=== PATIENT | male | born 1955 | race Caucasian/White ===

== ENCOUNTER 2017-12-22 08:40 | Inpatient (IN) | payer BC ==
[2017-12-22] MEDS ORDERED: ACETAMINOPHEN 325 MG TAB PO (10:30)
[2017-12-22] MEDS ORDERED: DEXTROSE 50% 50 ML SYRINGE IV ×2 (11:00)
[2017-12-22] MEDS ORDERED: GLUCOSE GEL 15 GRAM TUBE PO ×2 (11:00)
[2017-12-22] MEDS ORDERED: GLUCOSE GEL 15 GRAM TUBE BUCCAL (11:00)
[2017-12-22] MEDS: DEXTROSE 5%-0.45% NACL 1,000 ML IV (11:00)
[2017-12-22] MEDS ORDERED: GLUCAGON 1 MG INJ IM (11:00)
[2017-12-22 11:42] LABS: ADD MAN DIFF? NO
[2017-12-22 11:47] LABS: BASOPHILS % 0.3 % (0.0-2.0); EOSINOPHILS # 0.2 10^3/ul (0.0-0.5); EOSINOPHILS % 1.3 % (0.0-7.0); HEMATOCRIT 27.2 % (42.0-52.0); HEMOGLOBIN 8.1 g/dl (14.0-18.0); LYMPHOCYTES # 1.2 10^3/ul (0.8-2.9); MEAN CORPUSCULAR HEMOGLOBIN 23.3 pg (29.0-33.0); MEAN CORPUSCULAR HGB CONC 29.8 g/dl (32.0-37.0); MEAN CORPUSCULAR VOLUME 78.4 fl (82.0-101.0); MEAN PLATELET VOLUME 10.1 fl (7.4-10.4); MONOCYTE # 0.4 10^3/ul (0.3-0.9); MONOCYTES % 3.4 % (0.0-11.0); NEUTROPHIL # 9.8 10^3/ul (1.6-7.5); NEUTROPHILS % 84.5 % (39.0-77.0); PLATELET COUNT 284 10^3/UL (140-415); RED BLOOD COUNT 3.47 10^6/ul (4.70-6.10); RED CELL DISTRIBUTION WIDTH 17.2 % (11.5-14.5)
[2017-12-22 11:47] LABS: WHITE BLOOD COUNT 11.6 10^3/ul (4.8-10.8)
[2017-12-22 12:10] LABS: ANION GAP 14 (8-16); BLOOD UREA NITROGEN 13 mg/dl (7-20); CALCIUM 8.3 mg/dl (8.4-10.2); CARBON DIOXIDE 24 mmol/L (21-31); CHLORIDE 106 mmol/L (97-110); CREATININE 0.62 mg/dl (0.61-1.24); GLUCOSE 111 mg/dl (70-220); POTASSIUM 4.3 mmol/L (3.5-5.1); SODIUM 140 mmol/L (135-144)
[2017-12-22] MEDS: INSULIN ASPART [NOVOLOG] 3 ML PEN SC ×3 (12:35→20:15)
[2017-12-22] MEDS: CLINDAMYCIN 900 MG/D5W (PMX) 50 ML IVPB ×2 (14:31→22:31)
[2017-12-22] MEDS: SOD CHLORIDE 0.9% 1,000 ML IV (15:57)
[2017-12-22] MEDS ORDERED: HYDROCODONE/APAP (5/325) TAB PO (16:00)
[2017-12-22] MEDS: morphine 2 MG INJ IV (20:08)
[2017-12-22] MEDS: FERROUS SULFATE (EC) 325 MG TAB PO (20:14)
[2017-12-22] MEDS: GABAPENTIN 300 MG CAP PO (20:14)
[2017-12-23] MEDS: ACCU-CHEK XX (02:00)
[2017-12-23 05:49] LABS: ADD MAN DIFF? NO
[2017-12-23 05:50] LABS: WHITE BLOOD COUNT 12.1 10^3/ul (4.8-10.8)
[2017-12-23 05:50] LABS: BASOPHILS % 0.2 % (0.0-2.0); EOSINOPHILS # 0.2 10^3/ul (0.0-0.5); EOSINOPHILS % 1.4 % (0.0-7.0); HEMATOCRIT 27.2 % (42.0-52.0); LYMPHOCYTES # 1.7 10^3/ul (0.8-2.9); LYMPHOCYTES % 13.7 % (15.0-51.0); MEAN CORPUSCULAR HEMOGLOBIN 23.1 pg (29.0-33.0); MEAN CORPUSCULAR HGB CONC 29.4 g/dl (32.0-37.0); MEAN CORPUSCULAR VOLUME 78.6 fl (82.0-101.0); MEAN PLATELET VOLUME 10.2 fl (7.4-10.4); MONOCYTE # 0.5 10^3/ul (0.3-0.9); MONOCYTES % 3.9 % (0.0-11.0); NEUTROPHIL # 9.7 10^3/ul (1.6-7.5); NEUTROPHILS % 80.4 % (39.0-77.0); PLATELET COUNT 264 10^3/UL (140-415); RED BLOOD COUNT 3.46 10^6/ul (4.70-6.10); RED CELL DISTRIBUTION WIDTH 17.5 % (11.5-14.5)
[2017-12-23] MEDS: PANTOPRAZOLE (EC) 40 MG TAB PO (06:00)
[2017-12-23] MEDS: CLINDAMYCIN 900 MG/D5W (PMX) 50 ML IVPB ×2 (06:07→13:51)
[2017-12-23 06:10] LABS: ALANINE AMINOTRANSFERASE 16 IU/L (13-69); ALBUMIN 2.9 g/dl (3.3-4.9); ALBUMIN/GLOBULIN RATIO 0.64; ALKALINE PHOSPHATASE 72 IU/L (42-121); ANION GAP 8 (8-16); ASPARTATE AMINO TRANSFERASE 11 IU/L (15-46); BILIRUBIN,INDIRECT 0.1 mg/dl (0-1.1); BILIRUBIN,TOTAL 0.1 mg/dl (0.2-1.3); BLOOD UREA NITROGEN 13 mg/dl (7-20); CARBON DIOXIDE 26 mmol/L (21-31); CHLORIDE 108 mmol/L (97-110); CREATININE 0.69 mg/dl (0.61-1.24); GLUCOSE 120 mg/dl (70-220); POTASSIUM 4.7 mmol/L (3.5-5.1); SODIUM 137 mmol/L (135-144); TOTAL PROTEIN 7.4 g/dl (6.1-8.1)
[2017-12-23] MEDS: INSULIN ASPART [NOVOLOG] 3 ML PEN SC ×4 (07:30→20:40)
[2017-12-23] MEDS: FERROUS SULFATE (EC) 325 MG TAB PO ×2 (09:00→20:39)
[2017-12-23] MEDS: LISINOPRIL 5 MG TAB PO (09:00)
[2017-12-23] MEDS: GABAPENTIN 300 MG CAP PO ×2 (09:00→20:39)
[2017-12-23] MEDS: ASPIRIN (EC) 81 MG TAB PO (09:00)
[2017-12-23] MEDS: LINAGLIPTIN 5 MG TABLET PO (11:50)
[2017-12-23] MEDS: SOD CHLORIDE 0.9% 1,000 ML IV (12:11)
[2017-12-23] MEDS: LEVOFLOXACIN 500MG/D5W (PMX) 100 ML IVPB (14:31)
[2017-12-23] MEDS: DEXTROSE 5%-0.45% NACL 1,000 ML IV (14:31)
[2017-12-23 15:26] LABS: PROTIME 15.4 Sec (11.9-14.9); PT RATIO 1.2
[2017-12-23] MEDS: ZYVOX 600 MG TAB PO ×2 (16:00→22:39)
[2017-12-23] MEDS: ERTAPENEM SODIUM 1 GM in SOD CHLORIDE 0.9% 100 ML IVPB ×2 (16:00→20:56)
[2017-12-23] MEDS ORDERED: LIDOCAINE 2% (SDV) 5 ML INJ (17:23)
[2017-12-23] MEDS ORDERED: GLYCOPYRROLATE 0.4 MG INJ (17:23)
[2017-12-23] MEDS ORDERED: SUCCINYLCHOLINE CHLORIDE 100 MG/5 ML SYG IV (17:23)
[2017-12-23] MEDS ORDERED: PROPOFOL 20 ML (17:23)
[2017-12-23] MEDS ORDERED: MEPERIDINE 100 MG INJ (17:23)
[2017-12-23] MEDS ORDERED: ROCURONIUM 50 MG INJ (17:23)
[2017-12-23] MEDS ORDERED: NEOSTIGMINE 3 MG/3 ML SYRINGE (17:23)
[2017-12-23] MEDS ORDERED: OXYCODONE/ACETAMINOPHEN (5/325) TAB PO ×2 (17:30)
[2017-12-23] MEDS ORDERED: MEPERIDINE 25 MG INJ IV (17:30)
[2017-12-23] MEDS ORDERED: EPHEDrine SULFATE 50 MG/5 ML SYG IV (17:30)
[2017-12-23] MEDS ORDERED: ONDANSETRON 4 MG INJ IV (17:30)
[2017-12-23] MEDS ORDERED: LABETALOL HCL 20MG INJ IV (17:30)
[2017-12-23] MEDS ORDERED: METOCLOPRAMIDE 10 MG INJ IV (17:30)
[2017-12-23] MEDS ORDERED: FENTAnyl 50 MCG/ML VIAL IV ×3 (17:30)
[2017-12-23] MEDS ORDERED: DIPHENHYDRAMINE 50 MG INJ IV (17:30)
[2017-12-23] MEDS ORDERED: hydrALAzine 20 MG INJ IV (17:30)
[2017-12-23] MEDS ORDERED: MIDAZOLAM 1 MG/ML 2 ML INJ IV (17:30)
[2017-12-23] MEDS ORDERED: HYDROmorphONE (0.2 MG/ML) 10ML SYG IV ×3 (17:30)
[2017-12-23] MEDS ORDERED: morphine LIQ (10 MG/5 ML) CUP PO (19:30)
[2017-12-23] MEDS: ONDANSETRON 4 MG INJ IV (20:38)
[2017-12-24] MEDS: ACCU-CHEK XX (02:06)
[2017-12-24 06:04] LABS: ADD MAN DIFF? NO
[2017-12-24 06:15] LABS: WHITE BLOOD COUNT 14.6 10^3/ul (4.8-10.8)
[2017-12-24 06:15] LABS: ABNORMAL IP MESSAGE 1; BASOPHILS % 0.1 % (0.0-2.0); EOSINOPHILS % 0.1 % (0.0-7.0); HEMATOCRIT 23.7 % (42.0-52.0); LYMPHOCYTES # 0.4 10^3/ul (0.8-2.9); LYMPHOCYTES % 2.5 % (15.0-51.0); MEAN CORPUSCULAR HGB CONC 29.5 g/dl (32.0-37.0); MEAN PLATELET VOLUME 10.3 fl (7.4-10.4); MONOCYTE # 0.4 10^3/ul (0.3-0.9); MONOCYTES % 2.5 % (0.0-11.0); NEUTROPHIL # 13.8 10^3/ul (1.6-7.5); NEUTROPHILS % 94.5 % (39.0-77.0); PLATELET COUNT 230 10^3/UL (140-415); POSITIVE DIFF @See below; RED BLOOD COUNT 3.04 10^6/ul (4.70-6.10); RED CELL DISTRIBUTION WIDTH 17.2 % (11.5-14.5)
[2017-12-24] MEDS: PANTOPRAZOLE (EC) 40 MG TAB PO (06:20)
[2017-12-24 06:29] LABS: HEMOGLOBIN A1C 6.4 % (0-5.9)
[2017-12-24 07:05] LABS: ANION GAP 14 (8-16); BLOOD UREA NITROGEN 12 mg/dl (7-20); CALCIUM 7.6 mg/dl (8.4-10.2); CARBON DIOXIDE 25 mmol/L (21-31); CHLORIDE 106 mmol/L (97-110); CREATININE 0.72 mg/dl (0.61-1.24); GLUCOSE 179 mg/dl (70-220); POTASSIUM 4.5 mmol/L (3.5-5.1); SODIUM 140 mmol/L (135-144)
[2017-12-24] MEDS: GABAPENTIN 300 MG CAP PO ×2 (08:30→20:21)
[2017-12-24] MEDS: ASPIRIN (EC) 81 MG TAB PO (08:30)
[2017-12-24] MEDS: LINAGLIPTIN 5 MG TABLET PO (08:30)
[2017-12-24] MEDS: ZYVOX 600 MG TAB PO ×2 (08:30→20:21)
[2017-12-24] MEDS: FERROUS SULFATE (EC) 325 MG TAB PO ×2 (08:30→20:21)
[2017-12-24] MEDS: INSULIN ASPART [NOVOLOG] 3 ML PEN SC ×4 (08:32→20:22)
[2017-12-24] MEDS: LISINOPRIL 5 MG TAB PO (09:00)
[2017-12-24] MEDS: FOLIC ACID 1 MG TAB PO (12:07)
[2017-12-24] MEDS: LIDOCAINE 1% (MPF) 5 ML VIAL SC (16:00)
[2017-12-24] MEDS ORDERED: LIDOCAINE 1% (MPF) 5 ML VIAL SC (16:30)
[2017-12-24] MEDS: SOD FERRIC GLUC COMPLX 125 MG in SOD CHLORIDE 0.9% 100 ML IVPB (17:37)
[2017-12-24] MEDS: ERTAPENEM SODIUM 1 GM in SOD CHLORIDE 0.9% 100 ML IVPB (17:37)
[2017-12-24] MEDS: DIPHENHYDRAMINE 25 MG CAP PO (22:27)
[2017-12-24] MEDS: ACETAMINOPHEN 325 MG TAB PO (22:27)
[2017-12-25] MEDS: ACCU-CHEK XX (02:05)
[2017-12-25 06:18] LABS: ADD MAN DIFF? NO
[2017-12-25 06:23] LABS: WHITE BLOOD COUNT 7.2 10^3/ul (4.8-10.8)
[2017-12-25 06:23] LABS: ABNORMAL IP MESSAGE 1; BASOPHILS % 0.3 % (0.0-2.0); EOSINOPHILS # 0.1 10^3/ul (0.0-0.5); EOSINOPHILS % 1.1 % (0.0-7.0); HEMATOCRIT 20.6 % (42.0-52.0); LYMPHOCYTES # 0.7 10^3/ul (0.8-2.9); LYMPHOCYTES % 9.6 % (15.0-51.0); MEAN CORPUSCULAR HGB CONC 30.6 g/dl (32.0-37.0); MEAN CORPUSCULAR VOLUME 78.3 fl (82.0-101.0); MEAN PLATELET VOLUME 10.5 fl (7.4-10.4); MONOCYTE # 0.3 10^3/ul (0.3-0.9); MONOCYTES % 4.7 % (0.0-11.0); NEUTROPHILS % 83.9 % (39.0-77.0); PLATELET COUNT 220 10^3/UL (140-415); POSITIVE DIFF @See below; RED BLOOD COUNT 2.63 10^6/ul (4.70-6.10); RED CELL DISTRIBUTION WIDTH 17.2 % (11.5-14.5)
[2017-12-25] MEDS: PANTOPRAZOLE (EC) 40 MG TAB PO (06:31)
[2017-12-25 06:51] LABS: HEMOGLOBIN 6.3 g/dl (14.0-18.0)
[2017-12-25 07:27] LABS: ANION GAP 10 (8-16); BLOOD UREA NITROGEN 12 mg/dl (7-20); CALCIUM 7.7 mg/dl (8.4-10.2); CARBON DIOXIDE 26 mmol/L (21-31); CHLORIDE 106 mmol/L (97-110); CREATININE 0.77 mg/dl (0.61-1.24); GLUCOSE 121 mg/dl (70-220); POTASSIUM 3.8 mmol/L (3.5-5.1); SODIUM 138 mmol/L (135-144)
[2017-12-25] MEDS: INSULIN ASPART [NOVOLOG] 3 ML PEN SC ×4 (07:30→21:00)
[2017-12-25] MEDS: FERROUS SULFATE (EC) 325 MG TAB PO ×2 (08:32→21:00)
[2017-12-25] MEDS: FOLIC ACID 1 MG TAB PO (08:32)
[2017-12-25] MEDS: ASPIRIN (EC) 81 MG TAB PO (08:32)
[2017-12-25] MEDS: GABAPENTIN 300 MG CAP PO ×2 (08:32→21:00)
[2017-12-25] MEDS: ZYVOX 600 MG TAB PO ×2 (08:32→21:00)
[2017-12-25] MEDS: LISINOPRIL 5 MG TAB PO (08:33)
[2017-12-25] MEDS: LINAGLIPTIN 5 MG TABLET PO (08:33)
[2017-12-25 09:34] LABS: IMMEDIATE SPIN CROSSMATCH 1 4
[2017-12-25] MEDS: morphine 2 MG INJ IV (15:32)
[2017-12-25] MEDS: ERTAPENEM SODIUM 1 GM in SOD CHLORIDE 0.9% 100 ML IVPB (16:17)
[2017-12-25] MEDS: SOD FERRIC GLUC COMPLX 125 MG in SOD CHLORIDE 0.9% 100 ML IVPB (17:11)
[2017-12-25] MEDS ORDERED: morphine LIQ (10 MG/5 ML) CUP PO ×2 (18:30)
[2017-12-26] MEDS: ACCU-CHEK XX (02:00)
[2017-12-26] MEDS: PANTOPRAZOLE (EC) 40 MG TAB PO (05:28)
[2017-12-26] MEDS: BISACODYL (EC) 5 MG TAB PO (05:28)
[2017-12-26 06:20] LABS: ADD MAN DIFF? NO
[2017-12-26 06:29] LABS: WHITE BLOOD COUNT 9.5 10^3/ul (4.8-10.8)
[2017-12-26 06:29] LABS: BASOPHILS % 0.2 % (0.0-2.0); EOSINOPHILS # 0.2 10^3/ul (0.0-0.5); EOSINOPHILS % 1.8 % (0.0-7.0); HEMATOCRIT 22.4 % (42.0-52.0); LYMPHOCYTES # 0.8 10^3/ul (0.8-2.9); LYMPHOCYTES % 8.7 % (15.0-51.0); MEAN CORPUSCULAR HGB CONC 31.3 g/dl (32.0-37.0); MEAN PLATELET VOLUME 10.8 fl (7.4-10.4); MONOCYTE # 0.4 10^3/ul (0.3-0.9); MONOCYTES % 4.4 % (0.0-11.0); NEUTROPHILS % 84.4 % (39.0-77.0); PLATELET COUNT 217 10^3/UL (140-415)
[2017-12-26] MEDS: INSULIN ASPART [NOVOLOG] 3 ML PEN SC ×4 (08:04→20:40)
[2017-12-26] MEDS: FERROUS SULFATE (EC) 325 MG TAB PO ×2 (08:28→20:40)
[2017-12-26] MEDS: LINAGLIPTIN 5 MG TABLET PO (08:28)
[2017-12-26] MEDS: ZYVOX 600 MG TAB PO ×2 (08:28→20:40)
[2017-12-26] MEDS: ASPIRIN (EC) 81 MG TAB PO (08:28)
[2017-12-26] MEDS: GABAPENTIN 300 MG CAP PO ×2 (08:28→20:40)
[2017-12-26] MEDS: FOLIC ACID 1 MG TAB PO (08:28)
[2017-12-26] MEDS: LISINOPRIL 5 MG TAB PO (08:59)
[2017-12-26] MEDS: ERTAPENEM SODIUM 1 GM in SOD CHLORIDE 0.9% 100 ML IVPB (17:50)
[2017-12-26] MEDS: SOD FERRIC GLUC COMPLX 125 MG in SOD CHLORIDE 0.9% 100 ML IVPB (18:30)
[2017-12-26] MEDS: morphine 2 MG INJ IV (22:21)
[2017-12-27] MEDS: ACCU-CHEK XX (02:00)
[2017-12-27 05:19] LABS: ADD MAN DIFF? NO
[2017-12-27 05:21] LABS: WHITE BLOOD COUNT 7.5 10^3/ul (4.8-10.8)
[2017-12-27 05:21] LABS: BASOPHILS % 0.3 % (0.0-2.0); EOSINOPHILS # 0.1 10^3/ul (0.0-0.5); EOSINOPHILS % 1.7 % (0.0-7.0); HEMATOCRIT 27.1 % (42.0-52.0); HEMOGLOBIN 8.4 g/dl (14.0-18.0); LYMPHOCYTES # 0.8 10^3/ul (0.8-2.9); LYMPHOCYTES % 10.7 % (15.0-51.0); MEAN CORPUSCULAR HEMOGLOBIN 25.2 pg (29.0-33.0); MEAN CORPUSCULAR VOLUME 81.4 fl (82.0-101.0); MEAN PLATELET VOLUME 9.8 fl (7.4-10.4); MONOCYTE # 0.3 10^3/ul (0.3-0.9); MONOCYTES % 4.6 % (0.0-11.0); NEUTROPHIL # 6.2 10^3/ul (1.6-7.5); NEUTROPHILS % 82.4 % (39.0-77.0); PLATELET COUNT 212 10^3/UL (140-415); RED BLOOD COUNT 3.33 10^6/ul (4.70-6.10); RED CELL DISTRIBUTION WIDTH 17.1 % (11.5-14.5)
[2017-12-27] MEDS: PANTOPRAZOLE (EC) 40 MG TAB PO (05:41)
[2017-12-27] MEDS: INSULIN ASPART [NOVOLOG] 3 ML PEN SC ×4 (07:30→21:00)
[2017-12-27] MEDS: ZYVOX 600 MG TAB PO ×2 (09:04→21:17)
[2017-12-27] MEDS: GABAPENTIN 300 MG CAP PO ×2 (09:04→21:17)
[2017-12-27] MEDS: FERROUS SULFATE (EC) 325 MG TAB PO ×2 (09:04→21:17)
[2017-12-27] MEDS: ASPIRIN (EC) 81 MG TAB PO (09:05)
[2017-12-27] MEDS: LINAGLIPTIN 5 MG TABLET PO (09:05)
[2017-12-27] MEDS: FOLIC ACID 1 MG TAB PO (09:05)
[2017-12-27] MEDS: LISINOPRIL 5 MG TAB PO (09:05)
[2017-12-27] MEDS: ERTAPENEM SODIUM 1 GM in SOD CHLORIDE 0.9% 100 ML IVPB (16:04)
[2017-12-28] MEDS: ACCU-CHEK XX (02:00)
[2017-12-28] MEDS: PANTOPRAZOLE (EC) 40 MG TAB PO (05:25)
[2017-12-28 05:38] LABS: ADD MAN DIFF? NO
[2017-12-28 05:41] LABS: BASOPHILS % 0.2 % (0.0-2.0); EOSINOPHILS # 0.2 10^3/ul (0.0-0.5); EOSINOPHILS % 2.6 % (0.0-7.0); HEMATOCRIT 27.4 % (42.0-52.0); HEMOGLOBIN 8.5 g/dl (14.0-18.0); LYMPHOCYTES % 14.9 % (15.0-51.0); MEAN CORPUSCULAR HEMOGLOBIN 25.2 pg (29.0-33.0); MEAN CORPUSCULAR VOLUME 81.3 fl (82.0-101.0); MEAN PLATELET VOLUME 9.4 fl (7.4-10.4); MONOCYTE # 0.3 10^3/ul (0.3-0.9); MONOCYTES % 4.1 % (0.0-11.0); NEUTROPHIL # 5.1 10^3/ul (1.6-7.5); NEUTROPHILS % 77.9 % (39.0-77.0); PLATELET COUNT 218 10^3/UL (140-415); RED BLOOD COUNT 3.37 10^6/ul (4.70-6.10); RED CELL DISTRIBUTION WIDTH 17.7 % (11.5-14.5)
[2017-12-28 05:41] LABS: WHITE BLOOD COUNT 6.6 10^3/ul (4.8-10.8)
[2017-12-28 06:06] LABS: CARBON DIOXIDE 26 mmol/L (21-31); CHLORIDE 107 mmol/L (97-110); POTASSIUM 4.2 mmol/L (3.5-5.1); SODIUM 141 mmol/L (135-144)
[2017-12-28 06:07] LABS: ANION GAP 12 (8-16); BLOOD UREA NITROGEN 10 mg/dl (7-20); CALCIUM 7.8 mg/dl (8.4-10.2); CREATININE 0.66 mg/dl (0.61-1.24); GLUCOSE 109 mg/dl (70-220)
[2017-12-28 06:13] LABS: PHOSPHORUS 4.2 mg/dl (2.5-4.9)
[2017-12-28] MEDS: INSULIN ASPART [NOVOLOG] 3 ML PEN SC ×4 (07:52→20:33)
[2017-12-28] MEDS: ZYVOX 600 MG TAB PO (08:47)
[2017-12-28] MEDS: LISINOPRIL 5 MG TAB PO (08:47)
[2017-12-28] MEDS: FERROUS SULFATE (EC) 325 MG TAB PO ×2 (08:47→20:31)
[2017-12-28] MEDS: LINAGLIPTIN 5 MG TABLET PO (08:47)
[2017-12-28] MEDS: GABAPENTIN 300 MG CAP PO ×2 (08:47→20:33)
[2017-12-28] MEDS: ASPIRIN (EC) 81 MG TAB PO (08:47)
[2017-12-28] MEDS: FOLIC ACID 1 MG TAB PO (08:47)
[2017-12-28] MEDS ORDERED: morphine LIQ (10 MG/5 ML) CUP PO (15:30)
[2017-12-28] MEDS: ERTAPENEM SODIUM 1 GM in SOD CHLORIDE 0.9% 100 ML IVPB (15:40)
[2017-12-28] MEDS: DAPTOMYCIN IVPB (16:28)
[2017-12-28] MEDS: SOD CHLORIDE 0.9% IVPB (16:28)
[2017-12-28] MEDS: morphine 2 MG INJ IV (23:24)
[2017-12-29] MEDS: ACCU-CHEK XX (01:18)
[2017-12-29 06:46] LABS: CREATINE KINASE < 20 IU/L (23-200)
[2017-12-29] MEDS: PANTOPRAZOLE (EC) 40 MG TAB PO (06:49)
[2017-12-29] MEDS: INSULIN ASPART [NOVOLOG] 3 ML PEN SC ×2 (07:30→11:30)
[2017-12-29] MEDS: ASPIRIN (EC) 81 MG TAB PO (09:28)
[2017-12-29] MEDS: FOLIC ACID 1 MG TAB PO (09:28)
[2017-12-29] MEDS: FERROUS SULFATE (EC) 325 MG TAB PO (09:28)
[2017-12-29] MEDS: LINAGLIPTIN 5 MG TABLET PO (09:29)
[2017-12-29] MEDS: GABAPENTIN 300 MG CAP PO (09:29)
[2017-12-29] MEDS: LISINOPRIL 5 MG TAB PO (09:29)
[2017-12-29] MEDS: ERTAPENEM SODIUM 1 GM in SOD CHLORIDE 0.9% 100 ML IVPB (15:56)
[2017-12-29] MEDS: SOD CHLORIDE 0.9% IVPB (15:57)
[2017-12-29] MEDS: DAPTOMYCIN IVPB (15:57)
== END 2017-12-29 17:23 | disposition home health service (06) | DRG 581 ==
LOC: PP2 08:40
PROC: 0Y960ZZ Drainage of Left Inguinal Region, Open Approach (ICD-10-PCS; principal; 2017-12-23 16:30)
PROC: 0JD90ZZ Extraction of Buttock Subcutaneous Tissue and Fascia, Open Approach (ICD-10-PCS; 2017-12-23 16:30)
PROC: 0JDC0ZZ Extraction of Pelvic Region Subcutaneous Tissue and Fascia, Open Approach (ICD-10-PCS; 2017-12-23 16:30)
PROC: 02HV33Z Insertion of Infusion Device into Superior Vena Cava, Percutaneous Approach (ICD-10-PCS; 2017-12-23 17:27)
PROC: B548ZZA Ultrasonography of Superior Vena Cava, Guidance (ICD-10-PCS; 2017-12-23 17:27)
PROC: 02H633Z Insertion of Infusion Device into Right Atrium, Percutaneous Approach (ICD-10-PCS; 2017-12-23 17:27)
DX: L73.2 Hidradenitis suppurativa (principal); L02.31 Cutaneous abscess of buttock; E88.09 Other disorders of plasma-protein metabolism, not elsewhere classified; D63.8 Anemia in other chronic diseases classified elsewhere; E11.9 Type 2 diabetes mellitus without complications; I10 Essential (primary) hypertension; B96.20 Unspecified Escherichia coli [E. coli] as the cause of diseases classified elsewhere; B96.4 Proteus (mirabilis) (morganii) as the cause of diseases classified elsewhere; B95.2 Enterococcus as the cause of diseases classified elsewhere; I25.10 Atherosclerotic heart disease of native coronary artery without angina pectoris; G89.29 Other chronic pain; F17.210 Nicotine dependence, cigarettes, uncomplicated; Z79.4 Long term (current) use of insulin; Z79.82 Long term (current) use of aspirin; Z95.5 Presence of coronary angioplasty implant and graft
CPT/HCPCS: 36430; 36569; 71045; 76937; 80048; 80053; 82550; 82962; 83036; 83735; 84100; 85025; 85610; 86850; 86900; 86901; 86920; 87070; 87075

== ENCOUNTER 2018-12-30 23:55 | Inpatient (IN) | payer BC ==
[2018-12-31 00:48] LABS: ADD MAN DIFF? NO
[2018-12-31 00:50] LABS: WHITE BLOOD COUNT 9.1 10^3/ul (4.8-10.8)
[2018-12-31 00:50] LABS: BASOPHILS % 0.3 % (0.0-2.0); EOSINOPHILS # 0.1 10^3/ul (0.0-0.5); EOSINOPHILS % 0.7 % (0.0-7.0); HEMATOCRIT 29.5 % (42.0-52.0); HEMOGLOBIN 8.9 g/dl (14.0-18.0); LYMPHOCYTES # 1.4 10^3/ul (0.8-2.9); LYMPHOCYTES % 15.1 % (15.0-51.0); MEAN CORPUSCULAR HEMOGLOBIN 25.6 pg (29.0-33.0); MEAN CORPUSCULAR HGB CONC 30.2 g/dl (32.0-37.0); MEAN PLATELET VOLUME 9.4 fl (7.4-10.4); MONOCYTE # 0.5 10^3/ul (0.3-0.9); MONOCYTES % 5.3 % (0.0-11.0); NEUTROPHIL # 7.1 10^3/ul (1.6-7.5); NEUTROPHILS % 78.3 % (39.0-77.0); PLATELET COUNT 279 10^3/UL (140-415); RED BLOOD COUNT 3.47 10^6/ul (4.70-6.10); RED CELL DISTRIBUTION WIDTH 18.9 % (11.5-14.5)
[2018-12-31] MEDS: CEFEPIME 2GM/50 ML (PMX) 50 ML IVPB (00:58)
[2018-12-31 01:09] LABS: ANION GAP 6 (5-13); BLOOD UREA NITROGEN 15 mg/dl (7-20); CARBON DIOXIDE 23 mmol/L (21-31); CHLORIDE 106 mmol/L (97-110); CREATININE 0.66 mg/dl (0.61-1.24); Estimated GFR > 60 mL/min (>60); GLUCOSE 82 mg/dl (70-220); POTASSIUM 4.4 mmol/L (3.5-5.1); SODIUM 135 mmol/L (135-144)
[2018-12-31] MEDS: VANCOMYCIN 1 GM (PMX) 250 ML IVPB (01:20)
[2018-12-31 01:35] LABS: TROPONIN-I < 0.012 ng/ml (0.000-0.120)
[2018-12-31 01:46] LABS: INR 1.25; PROTIME 15.8 Sec (11.9-14.9); PT RATIO 1.2
[2018-12-31] MEDS: SOD CHLORIDE 0.9% 1,000 ML IV ×2 (03:45→05:44)
[2018-12-31] MEDS ORDERED: ACETAMINOPHEN 325 MG TAB PO (05:00)
[2018-12-31] MEDS ORDERED: traMADol 50 MG TAB PO (05:00)
[2018-12-31] MEDS ORDERED: VANCOMYCIN IV PER PHARMACY XX (05:00)
[2018-12-31] MEDS: morphine 2 MG INJ IV (05:44)
[2018-12-31] MEDS: PANTOPRAZOLE (EC) 40 MG TAB PO (05:44)
[2018-12-31] MEDS ORDERED: DEXTROSE 50% 50 ML SYRINGE IV ×2 (06:30)
[2018-12-31] MEDS ORDERED: GLUCOSE GEL 15 GRAM TUBE BUCCAL (06:30)
[2018-12-31] MEDS ORDERED: GLUCAGON 1 MG INJ IM (06:30)
[2018-12-31] MEDS ORDERED: GLUCOSE GEL 15 GRAM TUBE PO ×2 (06:30)
[2018-12-31 07:15] LABS: LACTIC ACID 1.3 mmol/L (0.5-2.0)
[2018-12-31] MEDS: INSULIN ASPART [NOVOLOG] 3 ML PEN SC ×4 (08:00→21:00)
[2018-12-31] MEDS: FENOFIBRATE 145 MG TAB PO (11:02)
[2018-12-31] MEDS: FERROUS SULFATE (EC) 325 MG TAB PO ×2 (11:03→21:08)
[2018-12-31] MEDS: ASPIRIN (EC) 81 MG TAB PO (11:03)
[2018-12-31] MEDS: ENOXAPARIN 40 MG/0.4 ML SYG SC (11:04)
[2018-12-31] MEDS: LISINOPRIL 5 MG TAB PO (11:04)
[2018-12-31 12:13] LABS: LACTIC ACID 2.1 mmol/L (0.5-2.0)
[2018-12-31] MEDS: VANCOMYCIN 1 GM 250 ML IVPB (12:17)
[2018-12-31] MEDS ORDERED: FERROUS SULFATE (EC) 325 MG TAB PO (21:00)
[2019-01-01] MEDS: ACCU-CHEK XX (02:00)
[2019-01-01] MEDS: morphine 2 MG INJ IV ×2 (02:11→19:32)
[2019-01-01] MEDS: VANCOMYCIN 1 GM 250 ML IVPB ×2 (02:12→13:45)
[2019-01-01] MEDS: SOD CHLORIDE 0.9% 1,000 ML IV ×2 (02:12→20:29)
[2019-01-01] MEDS: PANTOPRAZOLE (EC) 40 MG TAB PO (05:49)
[2019-01-01 05:56] LABS: ADD MAN DIFF? NO
[2019-01-01 06:04] LABS: WHITE BLOOD COUNT 8.3 10^3/ul (4.8-10.8)
[2019-01-01 06:04] LABS: BASOPHILS % 0.4 % (0.0-2.0); EOSINOPHILS # 0.1 10^3/ul (0.0-0.5); EOSINOPHILS % 0.6 % (0.0-7.0); HEMATOCRIT 26.3 % (42.0-52.0); LYMPHOCYTES # 1.2 10^3/ul (0.8-2.9); LYMPHOCYTES % 14.9 % (15.0-51.0); MEAN CORPUSCULAR HEMOGLOBIN 25.6 pg (29.0-33.0); MEAN CORPUSCULAR HGB CONC 30.4 g/dl (32.0-37.0); MEAN CORPUSCULAR VOLUME 84.3 fl (82.0-101.0); MEAN PLATELET VOLUME 10.2 fl (7.4-10.4); MONOCYTE # 0.4 10^3/ul (0.3-0.9); NEUTROPHIL # 6.5 10^3/ul (1.6-7.5); NEUTROPHILS % 78.7 % (39.0-77.0); PLATELET COUNT 235 10^3/UL (140-415); RED BLOOD COUNT 3.12 10^6/ul (4.70-6.10); RED CELL DISTRIBUTION WIDTH 18.7 % (11.5-14.5)
[2019-01-01 06:25] LABS: HEMOGLOBIN A1C 5.7 % (0-5.9)
[2019-01-01 06:39] LABS: ANION GAP 5 (5-13); CARBON DIOXIDE 25 mmol/L (21-31); CHLORIDE 107 mmol/L (97-110); POTASSIUM 4.3 mmol/L (3.5-5.1); SODIUM 137 mmol/L (135-144)
[2019-01-01 06:40] LABS: LACTIC ACID 1.7 mmol/L (0.5-2.0)
[2019-01-01 07:53] LABS: BLOOD UREA NITROGEN 12 mg/dl (7-20); CALCIUM 7.4 mg/dl (8.4-10.2); CREATININE 0.57 mg/dl (0.61-1.24); Estimated GFR > 60 mL/min (>60); GLUCOSE 102 mg/dl (70-220)
[2019-01-01] MEDS: INSULIN ASPART [NOVOLOG] 3 ML PEN SC ×4 (08:00→20:27)
[2019-01-01] MEDS: ASPIRIN (EC) 81 MG TAB PO (08:22)
[2019-01-01] MEDS: FERROUS SULFATE (EC) 325 MG TAB PO ×2 (08:22→20:28)
[2019-01-01] MEDS: FENOFIBRATE 145 MG TAB PO (08:22)
[2019-01-01] MEDS: LISINOPRIL 5 MG TAB PO (08:23)
[2019-01-01] MEDS: ENOXAPARIN 40 MG/0.4 ML SYG SC (08:23)
[2019-01-01] MEDS ORDERED: LISINOPRIL 5 MG TAB PO (09:00)
[2019-01-01] MEDS ORDERED: FENOFIBRATE 145 MG TAB PO (09:00)
[2019-01-01] MEDS: MEROPENEM 1 GM/50ML(PMX) 50 ML IVPB ×2 (12:56→20:28)
[2019-01-02 01:24] LABS: VANCOMYCIN,TROUGH 12.2 ug/ml (10.0-20.0)
[2019-01-02] MEDS: VANCOMYCIN 1 GM 250 ML IVPB ×2 (01:57→12:42)
[2019-01-02] MEDS: ACCU-CHEK XX (02:00)
[2019-01-02] MEDS: SOD CHLORIDE 0.9% 1,000 ML IV (05:09)
[2019-01-02] MEDS: PANTOPRAZOLE (EC) 40 MG TAB PO (05:09)
[2019-01-02 06:03] LABS: ADD MAN DIFF? NO; BASOPHILS % 0.2 % (0.0-2.0); EOSINOPHILS % 0.3 % (0.0-7.0); HEMOGLOBIN 7.9 g/dl (14.0-18.0); LYMPHOCYTES # 1.3 10^3/ul (0.8-2.9); LYMPHOCYTES % 13.9 % (15.0-51.0); MEAN CORPUSCULAR HEMOGLOBIN 25.7 pg (29.0-33.0); MEAN CORPUSCULAR HGB CONC 30.4 g/dl (32.0-37.0); MEAN CORPUSCULAR VOLUME 84.7 fl (82.0-101.0); MONOCYTE # 0.4 10^3/ul (0.3-0.9); MONOCYTES % 4.6 % (0.0-11.0); NEUTROPHIL # 7.6 10^3/ul (1.6-7.5); NEUTROPHILS % 80.5 % (39.0-77.0); PLATELET COUNT 314 10^3/UL (140-415); RED BLOOD COUNT 3.07 10^6/ul (4.70-6.10); RED CELL DISTRIBUTION WIDTH 18.9 % (11.5-14.5)
[2019-01-02 06:03] LABS: WHITE BLOOD COUNT 9.5 10^3/ul (4.8-10.8)
[2019-01-02 06:35] LABS: MAGNESIUM 1.7 mg/dl (1.7-2.5)
[2019-01-02 06:35] LABS: PHOSPHORUS 2.9 mg/dl (2.5-4.9)
[2019-01-02 06:37] LABS: ANION GAP 4 (5-13); BLOOD UREA NITROGEN 10 mg/dl (7-20); CALCIUM 7.4 mg/dl (8.4-10.2); CARBON DIOXIDE 27 mmol/L (21-31); CHLORIDE 106 mmol/L (97-110); CREATININE 0.57 mg/dl (0.61-1.24); Estimated GFR > 60 mL/min (>60); GLUCOSE 99 mg/dl (70-220); POTASSIUM 4.2 mmol/L (3.5-5.1); SODIUM 137 mmol/L (135-144)
[2019-01-02] MEDS: INSULIN ASPART [NOVOLOG] 3 ML PEN SC ×4 (07:50→20:38)
[2019-01-02] MEDS: ENOXAPARIN 40 MG/0.4 ML SYG SC (08:24)
[2019-01-02] MEDS: LISINOPRIL 5 MG TAB PO (08:24)
[2019-01-02] MEDS: ASPIRIN (EC) 81 MG TAB PO (08:24)
[2019-01-02] MEDS: MEROPENEM 1 GM/50ML(PMX) 50 ML IVPB ×2 (08:24→20:25)
[2019-01-02] MEDS: FERROUS SULFATE (EC) 325 MG TAB PO ×2 (08:24→20:25)
[2019-01-02] MEDS: FENOFIBRATE 145 MG TAB PO (08:24)
[2019-01-02] MEDS: morphine 2 MG INJ IV (20:25)
[2019-01-03] MEDS: VANCOMYCIN 1 GM 250 ML IVPB ×2 (01:32→12:20)
[2019-01-03] MEDS: ACCU-CHEK XX (02:00)
[2019-01-03 05:45] LABS: ADD MAN DIFF? NO
[2019-01-03 05:55] LABS: WHITE BLOOD COUNT 10.5 10^3/ul (4.8-10.8)
[2019-01-03 05:55] LABS: BASOPHILS % 0.2 % (0.0-2.0); EOSINOPHILS % 0.3 % (0.0-7.0); HEMATOCRIT 25.5 % (42.0-52.0); HEMOGLOBIN 7.7 g/dl (14.0-18.0); LYMPHOCYTES # 1.2 10^3/ul (0.8-2.9); LYMPHOCYTES % 11.2 % (15.0-51.0); MEAN CORPUSCULAR HEMOGLOBIN 25.9 pg (29.0-33.0); MEAN CORPUSCULAR HGB CONC 30.2 g/dl (32.0-37.0); MEAN CORPUSCULAR VOLUME 85.9 fl (82.0-101.0); MEAN PLATELET VOLUME 9.1 fl (7.4-10.4); MONOCYTE # 0.5 10^3/ul (0.3-0.9); NEUTROPHIL # 8.7 10^3/ul (1.6-7.5); NEUTROPHILS % 82.6 % (39.0-77.0); PLATELET COUNT 304 10^3/UL (140-415); RED BLOOD COUNT 2.97 10^6/ul (4.70-6.10); RED CELL DISTRIBUTION WIDTH 18.6 % (11.5-14.5)
[2019-01-03] MEDS: PANTOPRAZOLE (EC) 40 MG TAB PO (05:57)
[2019-01-03] MEDS: INSULIN ASPART [NOVOLOG] 3 ML PEN SC ×4 (08:00→21:00)
[2019-01-03] MEDS: MEROPENEM 1 GM/50ML(PMX) 50 ML IVPB ×2 (09:03→20:59)
[2019-01-03] MEDS: FENOFIBRATE 145 MG TAB PO (09:06)
[2019-01-03] MEDS: FERROUS SULFATE (EC) 325 MG TAB PO ×2 (09:07→20:59)
[2019-01-03] MEDS: ASPIRIN (EC) 81 MG TAB PO (09:07)
[2019-01-03] MEDS: ENOXAPARIN 40 MG/0.4 ML SYG SC (09:08)
[2019-01-03] MEDS: LISINOPRIL 5 MG TAB PO (12:17)
[2019-01-03] MEDS: morphine 2 MG INJ IV (18:19)
[2019-01-04] MEDS: ACCU-CHEK XX (02:00)
[2019-01-04] MEDS: VANCOMYCIN 1 GM 250 ML IVPB ×2 (02:17→13:30)
[2019-01-04] MEDS: PANTOPRAZOLE (EC) 40 MG TAB PO (06:26)
[2019-01-04 08:07] LABS: ANION GAP 4 (5-13); BLOOD UREA NITROGEN 13 mg/dl (7-20); CALCIUM 7.7 mg/dl (8.4-10.2); CARBON DIOXIDE 27 mmol/L (21-31); CHLORIDE 104 mmol/L (97-110); Estimated GFR > 60 mL/min (>60); GLUCOSE 99 mg/dl (70-220); SODIUM 135 mmol/L (135-144)
[2019-01-04 08:17] LABS: POTASSIUM 4.3 mmol/L (3.5-5.1)
[2019-01-04] MEDS: ASPIRIN (EC) 81 MG TAB PO (08:32)
[2019-01-04] MEDS: LISINOPRIL 5 MG TAB PO (08:32)
[2019-01-04] MEDS: FENOFIBRATE 145 MG TAB PO (08:32)
[2019-01-04] MEDS: MEROPENEM 1 GM/50ML(PMX) 50 ML IVPB ×2 (08:33→20:57)
[2019-01-04] MEDS: FERROUS SULFATE (EC) 325 MG TAB PO ×2 (08:33→20:57)
[2019-01-04] MEDS: INSULIN ASPART [NOVOLOG] 3 ML PEN SC ×4 (08:34→21:00)
[2019-01-04] MEDS: ENOXAPARIN 40 MG/0.4 ML SYG SC (08:35)
[2019-01-04] MEDS: BISACODYL (EC) 5 MG TAB PO (16:42)
[2019-01-04] MEDS: LIDOCAINE 1% (MPF) 5 ML VIAL SC (16:50)
[2019-01-04] MEDS: MAGNESIUM CITRATE 300 ML BTL PO (17:46)
[2019-01-04] MEDS: POLYETHYLENE GLYCOL 3350 119 GM POWDER PO (17:51)
[2019-01-04] MEDS: ZYVOX 600 MG TAB PO (20:57)
[2019-01-04] MEDS: morphine 2 MG INJ IV (20:57)
[2019-01-05] MEDS: ACCU-CHEK XX (02:00)
[2019-01-05] MEDS: PANTOPRAZOLE (EC) 40 MG TAB PO (06:15)
[2019-01-05] MEDS: POLYETHYLENE GLYCOL 3350 119 GM POWDER PO (06:19)
[2019-01-05] MEDS: INSULIN ASPART [NOVOLOG] 3 ML PEN SC ×4 (08:32→20:52)
[2019-01-05] MEDS: LISINOPRIL 5 MG TAB PO (08:34)
[2019-01-05] MEDS: ASPIRIN (EC) 81 MG TAB PO (08:34)
[2019-01-05] MEDS: FERROUS SULFATE (EC) 325 MG TAB PO ×2 (08:36→20:47)
[2019-01-05] MEDS: FENOFIBRATE 145 MG TAB PO (08:36)
[2019-01-05] MEDS: BISACODYL (EC) 5 MG TAB PO (08:36)
[2019-01-05] MEDS: ZINC SULFATE 220 MG CAP PO (08:36)
[2019-01-05] MEDS: CALCIUM CARBONATE 1.25 GM TAB PO ×2 (08:36→20:47)
[2019-01-05] MEDS: ZYVOX 600 MG TAB PO ×2 (08:36→20:47)
[2019-01-05] MEDS: MEROPENEM 1 GM/50ML(PMX) 50 ML IVPB ×2 (08:37→20:47)
[2019-01-05] MEDS: ASCORBIC ACID 500 MG TAB.CHEW PO (08:38)
[2019-01-05] MEDS: ASCORBIC ACID 500 MG TAB PO (10:00)
[2019-01-05] MEDS ORDERED: EPHEDrine 25 MG/5 ML SYG IV (15:00)
[2019-01-05] MEDS ORDERED: FENTAnyl 50 MCG/ML VIAL IV ×2 (15:00)
[2019-01-05] MEDS ORDERED: ONDANSETRON 4 MG INJ IV (15:00)
[2019-01-05] MEDS ORDERED: HYDROmorphONE 1 MG/5 ML IV SYRINGE IV ×2 (15:00)
[2019-01-05] MEDS ORDERED: LABETALOL HCL 20MG INJ IV (15:00)
[2019-01-05] MEDS: PROPOFOL 20 ML (16:14)
[2019-01-05] MEDS: LACTULOSE 30ML CUP PO ×4 (17:51→23:00)
[2019-01-05] MEDS: morphine 2 MG INJ IV (20:37)
[2019-01-05 23:12] LABS: IMMEDIATE SPIN CROSSMATCH 1 1
[2019-01-06] MEDS: LACTULOSE 30ML CUP PO (01:00)
[2019-01-06] MEDS: ACCU-CHEK XX (02:00)
[2019-01-06] MEDS: INSULIN ASPART [NOVOLOG] 3 ML PEN SC ×3 (05:00→12:42)
[2019-01-06] MEDS: PANTOPRAZOLE (EC) 40 MG TAB PO (05:59)
[2019-01-06 06:10] LABS: ADD MAN DIFF? NO
[2019-01-06 06:22] LABS: BASOPHILS % 0.3 % (0.0-2.0); EOSINOPHILS % 0.3 % (0.0-7.0); HEMATOCRIT 29.1 % (42.0-52.0); HEMOGLOBIN 8.7 g/dl (14.0-18.0); LYMPHOCYTES # 0.9 10^3/ul (0.8-2.9); LYMPHOCYTES % 9.7 % (15.0-51.0); MEAN CORPUSCULAR HEMOGLOBIN 25.7 pg (29.0-33.0); MEAN CORPUSCULAR HGB CONC 29.9 g/dl (32.0-37.0); MEAN CORPUSCULAR VOLUME 85.8 fl (82.0-101.0); MEAN PLATELET VOLUME 9.8 fl (7.4-10.4); MONOCYTE # 0.5 10^3/ul (0.3-0.9); MONOCYTES % 4.7 % (0.0-11.0); NEUTROPHIL # 8.1 10^3/ul (1.6-7.5); NEUTROPHILS % 84.7 % (39.0-77.0); PLATELET COUNT 318 10^3/UL (140-415); RED BLOOD COUNT 3.39 10^6/ul (4.70-6.10); RED CELL DISTRIBUTION WIDTH 17.6 % (11.5-14.5)
[2019-01-06 06:22] LABS: WHITE BLOOD COUNT 9.5 10^3/ul (4.8-10.8)
[2019-01-06 07:04] LABS: ANION GAP 4 (5-13); BLOOD UREA NITROGEN 16 mg/dl (7-20); CALCIUM 7.9 mg/dl (8.4-10.2); CARBON DIOXIDE 29 mmol/L (21-31); CHLORIDE 105 mmol/L (97-110); CREATININE 0.48 mg/dl (0.61-1.24); Estimated GFR > 60 mL/min (>60); GLUCOSE 98 mg/dl (70-220); POTASSIUM 4.2 mmol/L (3.5-5.1); SODIUM 138 mmol/L (135-144)
[2019-01-06] MEDS: MEROPENEM 1 GM/50ML(PMX) 50 ML IVPB ×2 (08:48→20:46)
[2019-01-06] MEDS: ZYVOX 600 MG TAB PO ×2 (08:48→20:46)
[2019-01-06] MEDS: FERROUS SULFATE (EC) 325 MG TAB PO ×2 (09:00→20:47)
[2019-01-06] MEDS: FENOFIBRATE 145 MG TAB PO ×2 (09:00→17:32)
[2019-01-06] MEDS: CALCIUM CARBONATE 1.25 GM TAB PO ×2 (09:00→20:46)
[2019-01-06] MEDS: ASPIRIN (EC) 81 MG TAB PO ×2 (09:00→17:33)
[2019-01-06] MEDS: ZINC SULFATE 220 MG CAP PO ×2 (09:00→17:33)
[2019-01-06] MEDS: LISINOPRIL 5 MG TAB PO ×2 (09:00→17:34)
[2019-01-06] MEDS: ASCORBIC ACID 500 MG TAB PO ×2 (09:00→17:33)
[2019-01-06] MEDS: DEXTROSE 10% 1,000 ML IV (09:30)
[2019-01-06] MEDS: PROPOFOL 40 ML (10:40)
[2019-01-06] MEDS: LIDOCAINE 2% (SDV) 5 ML INJ (10:41)
[2019-01-06] MEDS ORDERED: METOCLOPRAMIDE 10 MG INJ IV (11:00)
[2019-01-06] MEDS ORDERED: EPHEDrine 25 MG/5 ML SYG IV (11:00)
[2019-01-06] MEDS ORDERED: FENTAnyl 50 MCG/ML VIAL IV (11:00)
[2019-01-06] MEDS ORDERED: hydrALAzine 20 MG INJ IV (11:00)
[2019-01-06] MEDS ORDERED: ONDANSETRON 4 MG INJ IV (11:00)
[2019-01-06] MEDS ORDERED: LABETALOL HCL 20MG INJ IV (11:00)
[2019-01-06] MEDS ORDERED: DIPHENHYDRAMINE 50 MG INJ IV (11:00)
[2019-01-06] MEDS ORDERED: MIDAZOLAM 1 MG/ML 2 ML INJ IV (11:00)
[2019-01-06] MEDS: Insulin NOVOLOG SS MODERATE Algorithm (SS with meals and bedtime) SC ×2 (17:23→20:47)
[2019-01-06] MEDS ORDERED: INSULIN ASPART [NOVOLOG] 3 ML PEN SC (17:35)
[2019-01-06] MEDS: morphine 2 MG INJ IV (22:10)
[2019-01-07] MEDS: ACCU-CHEK XX (02:00)
[2019-01-07] MEDS ORDERED: ACCU-CHEK XX (02:00)
[2019-01-07] MEDS: PANTOPRAZOLE (EC) 40 MG TAB PO (05:29)
[2019-01-07] MEDS: Insulin NOVOLOG SS MODERATE Algorithm (SS with meals and bedtime) SC ×4 (08:00→21:00)
[2019-01-07] MEDS: MEROPENEM 1 GM/50ML(PMX) 50 ML IVPB ×2 (08:45→21:34)
[2019-01-07] MEDS: ZYVOX 600 MG TAB PO ×2 (08:45→21:35)
[2019-01-07] MEDS: ASCORBIC ACID 500 MG TAB PO (08:46)
[2019-01-07] MEDS: FERROUS SULFATE (EC) 325 MG TAB PO ×2 (08:46→21:35)
[2019-01-07] MEDS: FENOFIBRATE 145 MG TAB PO (08:46)
[2019-01-07] MEDS: ZINC SULFATE 220 MG CAP PO (08:46)
[2019-01-07] MEDS: CALCIUM CARBONATE 1.25 GM TAB PO ×2 (08:46→21:35)
[2019-01-07] MEDS: ASPIRIN (EC) 81 MG TAB PO (08:47)
[2019-01-07] MEDS: LISINOPRIL 5 MG TAB PO (08:47)
[2019-01-07] MEDS: morphine 2 MG INJ IV (17:52)
[2019-01-08] MEDS: ACCU-CHEK XX (02:00)
[2019-01-08] MEDS: PANTOPRAZOLE (EC) 40 MG TAB PO (06:07)
[2019-01-08] MEDS: FERROUS SULFATE (EC) 325 MG TAB PO (08:26)
[2019-01-08] MEDS: CALCIUM CARBONATE 1.25 GM TAB PO (08:26)
[2019-01-08] MEDS: ZYVOX 600 MG TAB PO ×2 (08:26→16:21)
[2019-01-08] MEDS: ASPIRIN (EC) 81 MG TAB PO (08:26)
[2019-01-08] MEDS: ASCORBIC ACID 500 MG TAB PO (08:26)
[2019-01-08] MEDS: FENOFIBRATE 145 MG TAB PO (08:26)
[2019-01-08] MEDS: ZINC SULFATE 220 MG CAP PO (08:26)
[2019-01-08] MEDS: LISINOPRIL 5 MG TAB PO (08:27)
[2019-01-08] MEDS: MEROPENEM 1 GM/50ML(PMX) 50 ML IVPB ×2 (08:27→16:21)
[2019-01-08] MEDS: Insulin NOVOLOG SS MODERATE Algorithm (SS with meals and bedtime) SC ×2 (08:29→12:00)
== END 2019-01-08 17:07 | disposition home health service (06) | DRG 607 ==
LOC: E/R 23:55 → PP2 01-04 11:29
PROC: 02HV33Z Insertion of Infusion Device into Superior Vena Cava, Percutaneous Approach (ICD-10-PCS; principal; 2019-01-05 14:05)
PROC: 30233N1 Transfusion of Nonautologous Red Blood Cells into Peripheral Vein, Percutaneous Approach (ICD-10-PCS; 2019-01-05 14:05)
PROC: 0DB68ZX Excision of Stomach, Via Natural or Artificial Opening Endoscopic, Diagnostic (ICD-10-PCS; 2019-01-05 14:05)
PROC: 0DJD8ZZ Inspection of Lower Intestinal Tract, Via Natural or Artificial Opening Endoscopic (ICD-10-PCS; 2019-01-05 14:05)
DX: L73.2 Hidradenitis suppurativa (principal); E44.0 Moderate protein-calorie malnutrition; Z68.1 Body mass index [BMI] 19.9 or less, adult; N49.2 Inflammatory disorders of scrotum; L02.31 Cutaneous abscess of buttock; E11.9 Type 2 diabetes mellitus without complications; D63.8 Anemia in other chronic diseases classified elsewhere; I10 Essential (primary) hypertension; E78.5 Hyperlipidemia, unspecified; F17.200 Nicotine dependence, unspecified, uncomplicated; I25.10 Atherosclerotic heart disease of native coronary artery without angina pectoris; K20.9 Esophagitis, unspecified; K44.9 Diaphragmatic hernia without obstruction or gangrene; K29.70 Gastritis, unspecified, without bleeding; D50.9 Iron deficiency anemia, unspecified; B96.4 Proteus (mirabilis) (morganii) as the cause of diseases classified elsewhere; B96.20 Unspecified Escherichia coli [E. coli] as the cause of diseases classified elsewhere; Z16.21 Resistance to vancomycin; Z16.39 Resistance to other specified antimicrobial drug
CPT/HCPCS: 36415; 36430; 36569; 71045; 76870; 76937; 80048; 80202; 82962; 83036; 83605; 83735; 84100; 84484; 85025; 85610; 85730; 86850; 86900; 86901; 86920; 87040-91; 87070; 87081; 88305; 88312; 93005; 96374; 99285-25; G0378